=== PATIENT | female | born 1985 ===

== ENCOUNTER → 2025-09-27 10:11 | Outpatient (REF) | payer BC, SELFPAY ==
--- NOTE | 2025-09-27 11:17 | PTCARENOTE ---
Pt here for Echo Bubble Study. Patient denies any chance of , IUD in place. 22 G PC inserted Right median antecubital, flushed easily. Bubble study completed per protocol with aseptic technique, pt denies any dizziness, denies shortness of
breath [facility] D/C ed at 1015, site clear, no redness, no edema; pressure held no bleeding, 2x2 applied and taped. No change is status.
== END ==
LOC: RCS 10:11
PROVIDERS: ATTENDING PHYSICIAN Internal Medicine; FAMILY PHYSICIAN Family Medicine
DX: Q28.2 Arteriovenous malformation of cerebral vessels (principal)
CPT/HCPCS: 93306